=== PATIENT | female | born 1945 | race Caucasian/White ===

== ENCOUNTER 2016-10-08 11:43 | Inpatient (IN) | payer OTHER ==
[~2016-10-08] VITALS: Ht 152.4 cm; Wt 60.3 kg
[2016-10-08] MEDS ORDERED: GLYBURIDE5 MG PO (15:14)
[2016-10-08] MEDS ORDERED: ZANTAC 150 MG150 MG PO (15:15)
[2016-10-08] MEDS ORDERED: HYDROCHLOROTHIA25 MG PO (15:16)
[2016-10-08] MEDS ORDERED: SYNTHROID100 MCG PO (15:17)
[2016-10-08] MEDS ORDERED: ZYRTEC10 MG PO (15:18)
[2016-10-08] MEDS ORDERED: LANTUS INS100 UTS/M1 SQ (15:18)
[2016-10-08] MEDS ORDERED: NORVASC 5 MG TAB5 MG PO (15:20)
[2016-10-08] MEDS ORDERED: LISINOPRIL40 MG PO (15:20)
[2016-10-08] MEDS ORDERED: GLUCOPHAGE1000 MG PO (15:21)
[2016-10-08 15:38] LABS: HEMOGLOBIN 10.7 gm/dl (12.3-15.3); RED BLOOD COUNT 3.69 M/UL (4.00-5.10); WHITE BLOOD COUNT 19.5 K/UL (4.5-11.0)
[2016-10-09 04:33] LABS: WHITE BLOOD COUNT 15.6 K/UL (4.5-11.0)
[2016-10-09 04:35] LABS: RED BLOOD COUNT 3.03 M/UL (4.00-5.10)
[2016-10-09 04:36] LABS: HEMOGLOBIN 8.9 gm/dl (12.3-15.3)
[2016-10-11 04:22] LABS: HEMOGLOBIN 8.6 gm/dl (12.3-15.3); RED BLOOD COUNT 2.93 M/UL (4.00-5.10)
[2016-10-11 04:23] LABS: WHITE BLOOD COUNT 8.1 K/UL (4.5-11.0)
[2016-10-13] MEDS ORDERED: HABITROL 21 MG P1 EA TD (09:49)
[2016-10-13] MEDS ORDERED: CATAPRES 0.1MG0.1 MG PO (09:51)
== END 2016-10-13 14:45 | disposition home or self-care (01) | DRG 242 ==
LOC: PROG CARE 12:33 → CCU 12:33 → ZOBSOF 12:33 → EDBD 12:33 → PROG CARE 14:39 → CCU 17:36
PROVIDERS: Internal Medicine Infectious Disease; Internal Medicine Nephrology; Physician Assistant; ADMIT Internal Medicine
PROC: 02H63JZ Insertion of Pacemaker Lead into Right Atrium, Percutaneous Approach (ICD-10-PCS; principal; 2016-10-08)
PROC: 02HK3JZ Insertion of Pacemaker Lead into Right Ventricle, Percutaneous Approach (ICD-10-PCS; principal; 2016-10-08)
PROC: 0JH606Z Insertion of Pacemaker, Dual Chamber into Chest Subcutaneous Tissue and Fascia, Open Approach (ICD-10-PCS; principal; 2016-10-08)
PROC: 0YH Anatomical Regions, Lower Extremities, Insertion (ICD-10-PCS; 2016-10-08)
PROC: 5A1D00Z (ICD-10-PCS; 2016-10-08)
DX: I44.2 Atrioventricular block, complete (principal); R57.0 Cardiogenic shock; E13.10 Other specified diabetes mellitus with ketoacidosis without coma; N17.0 Acute kidney failure with tubular necrosis; I10 Essential (primary) hypertension; R41.0 Disorientation, unspecified; T38.3X5A Adverse effect of insulin and oral hypoglycemic [antidiabetic] drugs, initial encounter; Y92.009 Unspecified place in unspecified non-institutional (private) residence as the place of occurrence of the external cause; G62.9 Polyneuropathy, unspecified; R51 Headache; E03.9 Hypothyroidism, unspecified; F17.210 Nicotine dependence, cigarettes, uncomplicated; Z79.84 Long term (current) use of oral hypoglycemic drugs; Z88.6 Allergy status to analgesic agent; Z88.8 Allergy status to other drugs, medicaments and biological substances; Z91.041 Radiographic dye allergy status; Z79.4 Long term (current) use of insulin; Z79.899 Other long term (current) drug therapy
CPT/HCPCS: 33208; 36415; 36600; 71010; 80048; 80053; 81001; 82009; 82043; 82550; 82553; 82570; 82803; 82962; 83036; 83605; 83735; 84156; 84439; 84443; 84484; 85025; 85027; 87086; 90935; 93005; 93308; C1752; C1785; C1898; J0461; J1265; J1644; J1650; J1815; J2250; J2270; J3010; J3370; J7030; J7040; J7050; J7070

== ENCOUNTER 2016-10-22 07:19 | Emergency (ER) | payer OTHER ==
[~2016-10-22 07:19] MED LIST: CATAPRES 0.1MG0.1 MG PO; GLUCOPHAGE1000 MG PO; GLYBURIDE5 MG PO; HABITROL 21 MG P1 EA TD; HYDROCHLOROTHIA25 MG PO; LANTUS INS100 UTS/M1 SQ; LISINOPRIL40 MG PO; NORVASC 5 MG TAB5 MG PO; SYNTHROID100 MCG PO; ZANTAC 150 MG150 MG PO; ZYRTEC10 MG PO
[2016-10-22 08:12] LABS: RED BLOOD COUNT 3.11 M/UL (4.00-5.10)
[2016-10-22 08:37] LABS: BUN/CREATININE RATIO 11 (0-10)
== END 2016-10-22 12:29 | disposition home or self-care (01) ==
LOC: ER1 07:19
PROVIDERS: Physician Assistant
DX: J18.9 Pneumonia, unspecified organism (principal); E11.9 Type 2 diabetes mellitus without complications; I10 Essential (primary) hypertension; E07.9 Disorder of thyroid, unspecified; D64.9 Anemia, unspecified; Z87.891 Personal history of nicotine dependence; Z88.6 Allergy status to analgesic agent; Z95.0 Presence of cardiac pacemaker; Z79.4 Long term (current) use of insulin; Z79.899 Other long term (current) drug therapy
CPT/HCPCS: 36415; 71010; 80053; 82550; 82553; 83874; 83880; 84484; 85025; 93005; 99285; J1940; J1956

== ENCOUNTER 2016-11-08 05:05 | Emergency (ER) | payer OTHER ==
[2016-11-08 05:55] LABS: HEMOGLOBIN 9.3 gm/dl (12.3-15.3); RED BLOOD COUNT 3.22 M/UL (4.00-5.10); WHITE BLOOD COUNT 8.9 K/UL (4.5-11.0)
[2016-11-08 06:18] LABS: BUN/CREATININE RATIO 24 (0-10)
== END 2016-11-08 09:55 | disposition home or self-care (01) ==
LOC: ER1 05:05
PROVIDERS: Family Medicine
DX: J90 Pleural effusion, not elsewhere classified (principal); R91.8 Other nonspecific abnormal finding of lung field; E11.9 Type 2 diabetes mellitus without complications; I10 Essential (primary) hypertension; Z87.891 Personal history of nicotine dependence; Z95.0 Presence of cardiac pacemaker; Z88.6 Allergy status to analgesic agent
CPT/HCPCS: 36415; 71010; 80053; 82550; 82553; 83874; 83880; 84443; 84484; 85025; 93005; 99285